=== PATIENT | female | born 1945 | race Caucasian/White ===

== ENCOUNTER → 2016-09-22 | Outpatient (CLI) | payer OTHER, MEDICARE | LOC: BHFA 13:45 | PROVIDERS: ATTEND Internal Medicine Cardiovascular Disease | DX: I48.0 Paroxysmal atrial fibrillation (principal) ==

== ENCOUNTER → 2016-12-14 | Outpatient (CLI) | payer OTHER, MEDICARE | LOC: BHFA 13:30 | PROVIDERS: ATTEND Internal Medicine Cardiovascular Disease | DX: I48.0 Paroxysmal atrial fibrillation (principal) ==

== ENCOUNTER → 2017-01-19 | Outpatient (CLI) | payer OTHER, MEDICARE | LOC: BHFA 13:30 | PROVIDERS: ATTEND Internal Medicine Cardiovascular Disease | DX: R94.39 Abnormal result of other cardiovascular function study (principal) | CPT/HCPCS: 78452; 93017; A9500 ==

== ENCOUNTER → 2017-02-23 | Outpatient (CLI) | payer OTHER, MEDICARE | LOC: BHFA 14:30 | PROVIDERS: ATTEND Internal Medicine Cardiovascular Disease | DX: I48.0 Paroxysmal atrial fibrillation (principal) ==

== ENCOUNTER → 2017-03-22 | Outpatient (CLI) | payer OTHER, MEDICARE | LOC: FIMAGING 14:12 | PROVIDERS: ATTEND Internal Medicine | DX: Z12.31 Encounter for screening mammogram for malignant neoplasm of breast (principal) | CPT/HCPCS: G0202 ==

== ENCOUNTER 2017-03-30 11:10 | Day surgery (SDC) | payer OTHER, MEDICARE ==
[2017-03-30] MEDS ORDERED: LIDOCAINE 1% 300 MG/30 ML SDV ONE (11:37)
[2017-03-30] MEDS ORDERED: MIDAZOLAM 2 MG/2 ML VIAL ONE ×2 (11:37)
[2017-03-30] MEDS ORDERED: fentaNYL 100 MCG/2 ML INJ ONE (11:37)
[2017-03-30] MEDS ORDERED: BUPIVACAINE 0.5% 30 ML SDV ONE (11:37)
--- NOTE | 2017-03-30 18:57 | EPPROC ---
Electrophysiology Procedure Note: Procedure - LINQ monitor explant followed by new LINQ monitor implant. Indication - AF, to monitor for side effects of meds and also to assess AF burden Procedure performed after IV access and informed consent. Lidocaine used for local anesthetic. Existing LINQ monitor pocket opened under sterile conditions in cardiac labor relations analyst. Old LINQ monitor explanted. New LINQ monitor implanted. Wound closed with 3 anni. No complications. Patient Problems: Problems Problem Status Onset Atrial fibrillation and flutter Acute
== END 2017-03-30 16:58 | disposition home or self-care (01) ==
LOC: FCATH 11:10
PROVIDERS: ATTEND Internal Medicine Cardiovascular Disease
PROC: 0JH602Z Insertion of Monitoring Device into Chest Subcutaneous Tissue and Fascia, Open Approach (ICD-10-PCS; principal; 2017-03-30)
PROC: 0JPT02Z Removal of Monitoring Device from Trunk Subcutaneous Tissue and Fascia, Open Approach (ICD-10-PCS; principal; 2017-03-30)
DX: Z45.09 Encounter for adjustment and management of other cardiac device (principal); I48.0 Paroxysmal atrial fibrillation; E78.5 Hyperlipidemia, unspecified; E03.9 Hypothyroidism, unspecified
CPT/HCPCS: C1764; J2250; J3010

== ENCOUNTER 2018-01-27 10:10 | Day surgery (SDC) | payer OTHER, MEDICARE ==
[2018-01-27] MEDS ORDERED: ATROPINE SULFATE 1 MG/10 ML SYR IVP ONE (10:13)
[2018-01-27] MEDS ORDERED: fentaNYL 100 MCG/2 ML INJ IVP ONE (10:13)
[2018-01-27] MEDS ORDERED: NS 500 ML IV ONE (10:13)
[2018-01-27] MEDS ORDERED: BENZOCAINE UNIT DOSE SPRAY HURRICAINE MM ONE (10:13)
--- NOTE | 2018-01-27 10:26 | CPEKG ---
Heart Rate: 142 RR Interval: 423 P-R Interval: 136 QRSD Interval: 72 QT Interval: 304 QTC Interval: 467 P [place]: 0 QRS [place]: -48 T Wave [place]: 69 EKG Severity - ABNORMAL ECG - EKG Impression: ATRIAL FLUTTER WITH 2:1 CONDUCTION EKG Impression: LAD, CONSIDER LEFT ANTERIOR FASCICULAR BLOCK Electronically Signed By: Km Hess 27-Jan-2018 12:56:54
[2018-01-27 10:51] LABS: INR 1.42 (0.83-1.16); PROTIME(PATIENT) 17.5 SEC (12.0-15.0)
[2018-01-27] MEDS ORDERED: PROPOFOL 200 MG/20 ML VIAL ONE (11:01)
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
--- NOTE | 2018-01-27 11:54 | POSTANESTH ---
Post Anesthetic Evaluation Cardiovascular Status: Similar to Pre-Op Cond Respiratory Status: Normal, Stable, Similar to Pre-op Cond. Level of Consciousness/Mental Status: Can Participate in Eval Pain Control: Adequate, Prn Tx Ordered Nausea/Vomiting Control: Adequate, Prn Tx Ordered Complications Possibly Related to Anesthesia: None Noted
--- NOTE | 2018-01-27 12:16 | PDGENHP ---
History & Physical Chief Complaint: Atrial flutter History of Present Illness: 72-year-old female with known history of atrial arrhythmias. She has been on Pradaxa uninterrupted for year and a half. She has not missed a single dose. She has previously had a cardioversion at [facility]. She is now symptomatic in atrial flutter with rapid ventricular response and 2-1 AV conduction. Pertinent Past, Social, Family History: Reviewed Relevant Physical Exam: Tachycardic regular rhythm. Lungs clear Cardiorespiratory Assessment: Stable for procedure.
--- NOTE | 2018-01-27 12:17 | PDTEE1 ---
REBECCA Cardioversion Procedure Procedure: electrical cardioversion Indications: other (Atrial flutter) Consent: signed and in chart Anticoagulation: other (Pradaxa) Procedural Details: Pads were placed in anterior-posterior position. No REBECCA was performed as the patient has been on uninterrupted Pradaxa therapy for a year and a half. Sedation was provided by Dr. Choe. Synchronized cardioversion attempt #1: 200J Results: normal sinus rhythm Conclusions: successful cardioversion Patient Problems: Problems Problem Status Onset Atrial fibrillation and flutter Acute
--- NOTE | 2018-01-31 08:21 | CPEKG ---
Heart Rate: 79 RR Interval: 759 P-R Interval: 168 QRSD Interval: 88 QT Interval: 368 QTC Interval: 422 P [place]: 43 QRS [place]: -14 T Wave [place]: 22 EKG Severity - NORMAL ECG - EKG Impression: SINUS RHYTHM EKG Impression: COMPARED WITH 01/27/2018 AT 10:24 A.M. A.M. SINUS RHYTHM HAS REPLACED ATRIAL EKG Impression: FLUTTER Electronically Signed By: Ann Valente 31-Jan-2018 20:29:24
== END 2018-01-27 14:41 | disposition home or self-care (01) ==
LOC: FCATH 10:10
PROVIDERS: ATTEND Internal Medicine Cardiovascular Disease
PROC: 5A2204Z Restoration of Cardiac Rhythm, Single (ICD-10-PCS; principal; 2018-01-27)
DX: I48.92 Unspecified atrial flutter (principal)
CPT/HCPCS: J2704

== ENCOUNTER → 2018-02-22 | Outpatient (CLI) | payer OTHER, MEDICARE | LOC: BHFA 13:00 | PROVIDERS: ATTEND Internal Medicine Cardiovascular Disease | DX: I48.0 Paroxysmal atrial fibrillation (principal) ==